=== PATIENT | female | born 1985 | race Caucasian/White ===

== ENCOUNTER 2020-05-02 14:31 | Emergency (ER) | payer OTHER ==
[2020-05-02 14:45] VITALS: BMI 14.1
--- NOTE | 2020-05-02 15:16 | PDOC ---
History of Present Illness - General Chief Complaint: Chest Pain Stated Complaint: CHEST PAIN Time Seen by Provider: 05/02/20 14:35 - History of Present Illness Initial Comments: 05/02/20 15:11 34 yo female with pmh of anxiety, panic attacks, rheumatoid arthritis coming in for a panic attack that happened today. Pt explains that she had a similar incidence a few years ago. Pt explains she was feeling overwhelmed for past few days due to stress of job, family, and living situation. Pt said she usually takes quinton tea and reads bible that helps, but today it did not help. She has a pulse ox at home and she said her reading was at 234 HR. She also was having some chest palpitations and lighteheadness so she decided to call EMS. When EMS arrived she was placed on oxygen and she says she felt alot better. Pt denies current chest pain, lightheadedness, cough, shortness of breath, weight loss, palpitations, n/v/d. Past History - Medical History Allergies/Adverse Reactions: Allergies Allergy/AdvReac Type Severity Reaction Status Date / Time zinc Allergy Mild Verified 05/03/20 16:01 seafood Allergy Uncoded 05/02/20 14:45 COPD: No (arthritis) Psychiatric Problems: Yes (anxiety/panic attacks) Comment:: 05/02/20 15:16 pmh: anxiety, panic attacks, Rheumatoid arthritis PCP: Dr. Ministerio Black 05/02/20 16:33 - Surgical History Comments:: Denies 05/02/20 15:16 - Family History Comment:: FHx: Hx of DM in father Hx of hypothyroidism with mother 05/02/20 15:17 - Reproductive History LMP comment: Few days ago irregular - Psycho-Social/Smoking History Patient Lives Alone: No Lives with/in: Lives with person she takes care of Have you felt down, depressed or hopeless?: No Smoking Status: No Smoking History: Never smoked Have you smoked in the past 12 months: No Information on smoking cessation initiated: No - Substance Abuse Hx (Audit-C & DAST Scrn) How often the patient has a drink containing alcohol: Never Score: In Men: 4 or > Positive; In Women: 3 or > Positive: 0 Screen Result (Pos requires Nsg. Audit-10AR): Negative In the last yr the pt used illegal drug/Rx for NonMed reason: No Score: Yes response is considered Positive: 0 Screen Result (Positive result requires Nsg. DAST-10): Negative Review of Systems - Review of Systems Comments:: ROS Constitutional: negative fevers, chills, current diaphoresis HEENT: absent rhinorrhea, nasal congestion, ear pain, eye pain Cardiovascular: deies current chest pain, syncope, palpitations Resp: denies cough, SOB, hemoptysis GI: denies abdominal pain, N/V/D : Denies dysuria, pain with urination MSK: has some mild athralgia due to RA Skin: Denies any rashes 05/02/20 15:36 *Physical Exam - Vital Signs Last Vital Signs Temp Pulse Resp BP Pulse Ox 97.8 F 87 16 93/62 100 05/02/20 14:34 05/02/20 14:34 05/02/20 14:34 05/02/20 14:34 05/02/20 14:34 - Physical Exam General: NAD; pt does look under nourished HEENT: EOMI, BOBBY Cardiovasclar: No tenderness to palpation on anterior chest. Normal S1 S2 no murmurs rubs or gallops Lungs: CTA bilaterally Abdominal: Soft, nontender and nondistended abdomen Extremities: Normal ROM i all four extremities. No gross deformities Skin: Warm dry no rashes Neuro: No gross neurological deficits 05/02/20 15:41 Heart Score/ECG Review - History History: Slightly suspicious - Electrocardiogram EKG: Normal - Age Age: </= 45 - Risk Factors Based on the list above the patient has:: No risk factors known - ECG Intrepretation Rhythm: Regular Rhythm Comment:: Normal rhythm Normal rate at 97 SD interval normal P wave before every QRS Normal Qt interval No ST changes 05/02/20 16:19 - [place]: Normal - ECG Impressions Normal ECG: Yes ED Treatment Course - LABORATORY CBC & Chemistry Diagram: 05/02/20 15:36 05/02/20 15:36 Medical Decision Making - Medical Decision Making 34 yo female with pmh of panic attacks, RA, and anxiety disorder coming in due to panic attack that occured earlier. Pt explains she felt that she had some chest palpitations and lightheadedness. Pt had labs, CXR, and EKG drawn to r/o arrythmia, thyroid issue, or any other pathology. Will reassess later. 05/02/20 15:48 Pt had no new complaints, heard discharge plan, and agreed. 05/03/20 16:22 Discharge - Discharge Information Problems reviewed: Yes Clinical Impression/Diagnosis: Palpitations Condition: Improved Disposition: HOME - Follow up/Referral Referrals: Ministerio Black MD [Primary Care Provider] - - Patient Discharge Instructions Additional Instructions: You came to the emergency department because of panic attack/chest pain. Pt likely had panic attack is suggested to follow up with PCP or psych Return to ED if pt has any of the following: any new complaints, if your chest palpitations/panic attack persists and does not improve or if you develop Shortness of breath, new chest pain, trouble breathing with exertion. Please Call to follow up with you PCP in 1-2 days. Print Language: POLISH - Post Discharge Activity
[2020-05-02 16:06] LABS: HEMATOCRIT 36.7 % (32.4-45.2); HEMOGLOBIN 11.8 GM/dL (10.7-15.3); MCH 28.7 pg (25.7-33.7); MCHC 32.2 g/dl (32.0-36.0); MEAN CELL VOLUME 89.2 fl (80-96); MEAN PLT VOLUME 8.7 fl (7.5-11.1); PLATELET COUNT 301 K/MM3 (134-434); RBC 4.12 M/mm3 (3.60-5.2); RDW 14.5 % (11.6-15.6); WHITE BLOOD COUNT 9.6 K/mm3 (4.0-10.0)
--- NOTE | 2020-05-02 16:18 | PDOC ---
Documentation entered by Yaritza Wasserman SCRIBE, acting as scribe for Ariela Chaney MD. Ariela Chaney MD: This documentation has been prepared by the Lux gottlieb Xhesika, SCRIBE, under my direction and personally reviewed by me in its entirety. I confirm that the documentation accurately reflects all work, treatment, procedures, and medical decision making performed by me. Attending Attestation - Resident Resident Name: MalenaAhsan - ED Attending Attestation I have performed the following: I have examined & evaluated the patient, The case was reviewed & discussed with the resident, I agree w/resident's findings & plan, Exceptions are as noted - HPI HPI: 05/02/20 14:39 The patient is a 34y/o F with a PMH of anxiety, panic attacks, rheumatoid arthritis who presents to the ED for chest palpitations. Pt states her symptoms are similar to when she had a panic attack a few years ago. Pt states she has been feeling stressed - related to COVID, her job and living situation so she had a panic attack. Pt states her pulse ox at home was at 234 HR. The patient denies chest pain, shortness of breath, headache and dizziness. Denies fever, chills, cough, nausea, vomiting, diarrhea and constipation. Allergies: NKDA - Physicial Exam PE: GENERAL: Awake, alert, and fully oriented, in no acute distress HEAD: No signs of trauma EYES: PERRLA, EOMI, sclera anicteric, conjunctiva clear ENT: Auricles normal inspection, hearing grossly normal, nares patent, oropharynx clear without exudates. Moist mucosa NECK: Supple, no lymphadenopathy, JVD, or masses. Dec ROM (chronic, secondary to RA per patient) LUNGS: Breath sounds equal, clear to auscultation bilaterally. No wheezes, and no crackles HEART: Regular rate and rhythm, normal S1 and S2, no murmurs, rubs or gallops ABDOMEN: Soft, nontender, normoactive bowel sounds. No guarding, no rebound. No masses EXTREMITIES: Multiple contracted fingers to R hand. Remainder of extremities with normal range of motion, no edema. No clubbing or cyanosis. No cords, erythema, or tenderness NEUROLOGICAL: Cranial nerves II through XII grossly intact. Normal speech. Motor and sensation intact SKIN: Warm, dry, normal turgor, no rashes or lesions noted. - Medical Decision Making Pt with palpitations while under high stress. Will obtain labs to check electrolytes, trop. Low risk for ACS. Likely DC home. Discharge - Discharge Information Problems reviewed: Yes Clinical Impression/Diagnosis: Palpitations Condition: Improved Disposition: HOME - Follow up/Referral Referrals: Ministerio Black MD [Primary Care Provider] - - Patient Discharge Instructions Additional Instructions: You came to the emergency department because of panic attack/chest pain. Pt likely had panic attack is suggested to follow up with PCP or psych Return to ED if pt has any of the following: any new complaints, if your chest palpitations/panic attack persists and does not improve or if you develop Shortness of breath, new chest pain, trouble breathing with exertion. Please Call to follow up with you PCP in 1-2 days. Print Language: JAPANESE - Post Discharge Activity
[2020-05-02 16:44] LABS: ALBUMIN 3.8 g/dl (3.4-5.0); BILIRUBIN,TOTAL 0.4 mg/dL (0.2-1); BLOOD UREA NITROGEN 5.8 mg/dL (7-18); CREATININE 0.5 mg/dL (0.55-1.3); MAGNESIUM 2.2 mg/dL (1.8-2.4); POTASSIUM 4.2 mmol/L (3.5-5.1); TOT PROT 7.9 g/dl (6.4-8.2)
[2020-05-02 18:13] VITALS: BP 90/60; PULSE 82; TEMP 98.1
--- NOTE | 2020-05-04 14:16 | EKG ---
Test Reason : Blood Pressure : / mmHG Vent. Rate : 097 BPM Atrial Rate : 097 BPM P-R Int : 132 ms QRS Dur : 080 ms QT Int : 350 ms P-R-T Axes : 068 085 049 degrees QTc Int : 444 ms NORMAL SINUS RHYTHM NORMAL ECG NO PREVIOUS ECGS AVAILABLE Confirmed by YI MAYFIELD MD ([id number]) on 05/04/2020 2:15:42 PM Referred By: Confirmed By:YI MAYFIELD MD
== END 2020-05-02 17:45 | disposition home or self-care (01) ==
LOC: JER 14:31
DX: R00.2 Palpitations (principal)
CPT/HCPCS: 36415; 71046-TC-FY; 80053; 83735; 84443; 84702; 84703; 85027; 93005; 93010; 99285-25